=== PATIENT | male | born 1975 | race Caucasian/White ===

== ENCOUNTER 2016-05-31 20:56 | Emergency (ER) | payer OTHER | END 2016-05-31 21:37 | disposition left against medical advice (07) | LOC: ER1 20:56 | DX: Z53.21 Procedure and treatment not carried out due to patient leaving prior to being seen by health care provider (principal) ==

== ENCOUNTER 2016-06-17 16:14 | Emergency (ER) | payer OTHER | END 2016-06-17 19:18 | disposition home or self-care (01) | LOC: ER1 16:14 | DX: M51.26 Other intervertebral disc displacement, lumbar region (principal); M54.5 Low back pain; F17.210 Nicotine dependence, cigarettes, uncomplicated | CPT/HCPCS: 72131; 96372; 96374; 99283; J1100; J2270 ==

== ENCOUNTER → 2016-06-23 | Outpatient (CLI) | payer OTHER | LOC: KOH-I 10:00 | DX: R74.8 Abnormal levels of other serum enzymes (principal) | CPT/HCPCS: 76705 ==

== ENCOUNTER → 2016-06-29 | Outpatient (CLI) | payer OTHER | LOC: EMI 12:30 | DX: M51.36 Other intervertebral disc degeneration, lumbar region (principal); M54.5 Low back pain; M54.16 Radiculopathy, lumbar region; M51.16 Intervertebral disc disorders with radiculopathy, lumbar region | CPT/HCPCS: 72148 ==

== ENCOUNTER → 2021-02-04 | Outpatient (CLI) | payer OTHER | LOC: EMI 16:16 | DX: M51.26 Other intervertebral disc displacement, lumbar region (principal); M47.26 Other spondylosis with radiculopathy, lumbar region | CPT/HCPCS: 72148 ==

== ENCOUNTER → 2021-05-07 | Outpatient (CLI) | payer OTHER | LOC: EMI 09:00 | DX: M51.16 Intervertebral disc disorders with radiculopathy, lumbar region (principal); M48.061 Spinal stenosis, lumbar region without neurogenic claudication; M48.07 Spinal stenosis, lumbosacral region | CPT/HCPCS: 72158; A9577 ==